=== PATIENT | male | born 1955 | race Caucasian/White ===

== ENCOUNTER 2019-07-16 13:03 | Outpatient (CLI) | payer BC, SELFPAY ==
--- NOTE | ~2019-07-16 | XR_ITS ---
EXAMINATION: XR lumbar spine 2-3V EXAM DATE: 07/16/2019 13:30 INDICATION: Lumbar pain. TECHNIQUE: Frontal and lateral projections of the lumbar spine. There is no prior study for compari son. FINDINGS: There is mild diffuse thoracic disc disease and mild to moderate lower lumbar facet arthrop athy. Vertebral body heights are maintained. There are no acute fractures identified. Sacrum, sacroil iac joints, sacral arcuate lines are intact. There are no bony erosions identified. Paraspinal sof t tissue is unremarkable. IMPRESSION: Mild lumbar disc disease, mild to moderate lower lumbar facet arthropathy. Reviewed, dictated and finalized at location A. IMPRESSION: Mild lumbar disc disease, mild to moderate lower lumbar facet arth ropathy.
--- NOTE | ~2019-07-16 | XR_ITS ---
EXAMINATION: XR thoracic spine 2V EXAM DATE: 07/16/2019 13:30 INDICATION: No known recent injury provided at this time. Pain of the thoracolumbar spine. TECHNIQUE: Frontal and lateral projections of the thoracic spine as well as lateral swimmers projecti on of the upper thoracic spine for interpretation. There is no prior study for comparison. FINDINGS: There is mild mid and lower thoracic disc disease. Probable mild facet arthropathy. There are no bony erosions identified. The vertebral bodies are aligned in the AP dimension. The vertebr al body heights appear maintained. Paraspinal soft tissue is unremarkable. IMPRESSION: Mild thoracic spondylosis. Reviewed, dictated and finalized at location A. IMPRESSION: Mild thoracic spondylosis.
== END 2019-07-16 13:04 | disposition home or self-care (01) ==
DX: M54.6 Pain in thoracic spine (principal); M54.5 Low back pain; M51.86 Other intervertebral disc disorders, lumbar region; M12.88 Other specific arthropathies, not elsewhere classified, other specified site; M47.814 Spondylosis without myelopathy or radiculopathy, thoracic region
CPT/HCPCS: 72070; 72100

== ENCOUNTER 2020-02-04 15:21 | Emergency (ER) | payer BC, SELFPAY ==
[2020-02-04 15:28] VITALS: BP 139/87; PULSE 64; RESP 14; O2SAT 98
--- NOTE | 2020-02-04 15:33 | ED.GENADULT ---
HPI - General Adult General Chief complaint: Ear Stated complaint: fluid in ear Time Seen by Provider: 02/04/20 15:33 Source: patient Mode of arrival: ambulatory Limitations: no limitations History of Present Illness HPI narrative: 64-year-old male patient presents to the [facility] with complaints of feeling like there is fluid in both of the ears. Patient states he does have some decreased hearing noted to the left ear. Patient states he has had the symptoms now for about a week. Patient did call his doctor and was placed on a steroid pack that he continues to take and is about fpc through. Patient states he has been dealing with some chronic congestion for the past couple of years. Patient states he does have a steroid nasal spray that is prescribed to him that he does twice a day 2 squirts in each nostril. Patient denies any fevers, body aches or chills. Related Data Home Medications Medication Instructions Recorded Confirmed carbidopa-levodopa [Sinemet CR] 1 tablet PO BID 02/04/20 02/04/20 lisinopril 10 mg PO DAILY 02/04/20 02/04/20 ropinirole 4 mg PO BID 02/04/20 02/04/20 simvastatin 40 mg PO DAILY 02/04/20 02/04/20 Allergies Allergy/AdvReac Type Severity Reaction Status Date / Time Sulfa (Sulfonamide Allergy Anaphylaxis Verified 02/04/20 15:41 Antibiotics) Review of Systems Review of Systems: Narrative: CONSTITUTIONAL: Denies fever, chills, or sweats. EYES: Denies visual changes, redness, or discharge. ENT: Denies rhinorrhea, congestion, sore throat, positive bilateral otalgia. CARDIOVASCULAR: Denies chest pain, palpitations, or edema. RESPIRATORY: Denies cough or dyspnea. GASTROINTESTINAL: Denies abdominal pain, nausea, vomiting, or diarrhea. GENITOURINARY: Denies dysuria or hematuria. SKIN: Denies rash or itching. MUSCULOSKELETAL: Denies back pain, joint pain, or myalgia. NEUROLOGIC: Denies headache, numbness, or weakness. PSYCHIATRIC: Denies anxiety or depression. [facility] Past Medical History Medical History (Updated 02/04/20 @ 15:56 by LOVE Sauer) Hypercholesterolemia Hypertension Parkinson's disease Comments At the time of my signature I agree with nursing past medical history, surgical, social, and family history. There is no relevant family history pertinent to the presenting complaint. Exam Narrative: Exam Narrative: GENERAL: Well-appearing, well-nourished, and in no acute distress. HEAD: Normocephalic, atraumatic. EYES: PERRLA and EOMI. ENT: Nares clear, no rhinorrhea or epistaxis. Mucous membranes moist. The left TM does have slight erythema noted with a little bit of fluid behind the ear. NECK: Supple. No lymphadenopathy CHEST: Clear to auscultation. No respiratory distress. HEART: Regular rate and rhythm. No murmur heard. Normal peripheral pulses. ABDOMEN: Soft, nontender, nondistended, normal active bowel sounds. EXTREMITIES: Normal range of motion. No edema. SKIN: Warm, dry, no rash. NEURO: No focal deficits. Alert and oriented x3. Course Vital Signs Vital signs: Vital Signs Pulse Rate 64 02/04/20 15:28 Respiratory Rate 14 02/04/20 15:28 Blood Pressure 139/87 02/04/20 15:28 Pulse Oximetry 98 02/04/20 15:28 Pulse Rate 64 02/04/20 15:28 Respiratory Rate 14 02/04/20 15:28 Blood Pressure 139/87 02/04/20 15:28 Pulse Oximetry 98 02/04/20 15:28 Vital signs reviewed. The patient has been informed that they may have pre-hypertension or Hypertension based on a BP reading in the department. I recommend that the patient call the primary care provider listed on their discharge instructions or a physician of their choice this week to arrange follow up for further evaluation of possible pre-hypertension or Hypertension Medical Decision Making Differential Diagnosis Differential Diagnosis: Differential diagnosis: Otitis media, otitis externa, perforated TM, infection of the outer ear, foreign body or cerumen impaction, ruptured TM, acute mastoi
== END 2020-02-04 16:00 | disposition home or self-care (01) ==
PROVIDERS: Emergency Provider Nurse Practitioner Family; PCP Occupational Therapist
DX: H66.92 Otitis media, unspecified, left ear (principal); E78.00 Pure hypercholesterolemia, unspecified; I10 Essential (primary) hypertension; G20 Parkinson's disease
CPT/HCPCS: 99213; G0463

== ENCOUNTER → 2020-02-25 12:42 | Outpatient (CLI) | payer BC, SELFPAY ==
--- NOTE | ~2020-02-25 | CT_ITS ---
EXAMINATION: CT sinus wo con DATE: 02/25/2020 12:59 INDICATION: Sinusitis TECHNIQUE: Computed tomography (CT) of the paranasal sinuses was performed without intravenous contra st. The dose-length product was 290.62 mGy-cm. Iterative reconstruction technique was employed. COMPARISON: None FINDINGS: There is a mucous retention cyst of the left maxillary sinus. No air-fluid levels. No mucop eriosteal reaction. There are surgical changes of the ostiomeatal units. No significant nasal septal deviation. Mastoids are pneumatized. IMPRESSION: 1. 1.2 cm mucous retention cyst left maxillary sinus. Reviewed, dictated and finalized at location B. UNDER
== END ==
DX: J34.89 Other specified disorders of nose and nasal sinuses (principal); J34.1 Cyst and mucocele of nose and nasal sinus
CPT/HCPCS: 70486

== ENCOUNTER 2023-09-09 09:57 | Outpatient (CLI) | payer BC, MEDICARE, SELFPAY ==
--- NOTE | ~2023-09-09 | XR_ITS ---
EXAM: XR shoulder RT min 2V DATE: 09/09/2023 10:35 HISTORY: M75.121 EXTREME PAIN AFTER REACHING 3 DAYS AGO . COMPARISON: 05/22/2023, images only. FINDINGS: Normal mineralization. No fracture or dislocation. No lytic or blastic lesion. Mild AC hieu nt and moderate glenohumeral joint degenerative change. Calcific deposition in the rotator cuff. No e rosion or periosteal change. Soft tissues within normal limits. IMPRESSION: Polyarticular right shoulder osteoarthritis. Rotator cuff calcific tendinitis. Reviewed, dictated and finalized at location K.
== END 2023-09-09 09:58 | disposition home or self-care (01) ==
LOC: ANHIMG 10:15
PROVIDERS: Visit Provider Orthopaedic Surgery
DX: M75.121 Complete rotator cuff tear or rupture of right shoulder, not specified as traumatic (principal); M19.011 Primary osteoarthritis, right shoulder
CPT/HCPCS: 73030

== ENCOUNTER 2023-09-12 14:04 | Outpatient (CLI) | payer BC, MEDICARE, SELFPAY ==
--- NOTE | ~2023-09-12 | CT_ITS ---
EXAMINATION: CT shoulder RT wo con DATE: 09/12/2023 14:22 INDICATION: Right shoulder osteoarthritis. Preop. TECHNIQUE: Computed tomography (CT) of the right shoulder was performed without intravenous contrast. Automated exposure control and iterative reconstruction technique were employed. The dose-length pro duct was 310.73 mGy-cm. COMPARISON: Right shoulder radiograph 09/09/2023 FINDINGS: Bone alignment is normal. No fracture. There is mild osteoarthritis of acromioclavicular sophie int and moderate osteoarthritis of glenohumeral joint. There is narrowing of the subacromial space, c onsistent with rotator cuff tear. There is volume loss and moderate fatty atrophy of the supraspinatu s and infraspinatus muscle bellies. IMPRESSION: 1. Polyarticular osteoarthritis. 2. Chronic right rotator cuff tear. Reviewed, dictated and finalized at location A.
--- NOTE | 2023-09-12 14:27 | ECG_ITS ---
Test Date: 2023-09-12 14:31:42 Measurements Intervals [place] Rate: 63 P: 62 VA: 153 QRS: 49 QRSD: 117 T: 65 QT: 391 QTc: 401 Interpretive Statements SINUS RHYTHM POSSIBLE INFERIOR MYOCARDIAL INFARCTION , PROBABLY OLD [30 ms Q WAVE IN II/aVF] ABNORMAL ECG No previous ECG available for comparison Electronically Signed On 09-12-2023 16:26:57 CDT by Won Hester M.D.
== END 2023-09-12 14:05 | disposition home or self-care (01) ==
LOC: ANHIMG 14:05
PROVIDERS: Visit Provider Orthopaedic Surgery
DX: M75.101 Unspecified rotator cuff tear or rupture of right shoulder, not specified as traumatic (principal); I10 Essential (primary) hypertension; M19.011 Primary osteoarthritis, right shoulder; R94.31 Abnormal electrocardiogram [ECG] [EKG]
CPT/HCPCS: 73200; 93005

== ENCOUNTER 2023-12-04 09:51 | Outpatient (CLI) | payer BC, MEDICARE, SELFPAY ==
[2023-12-04 11:04] LABS: Basophils Percent Auto 0.3 % (0.2-1.2); Eosinophils Absolute Auto 0.2 K/mm3 (0-0.3); Eosinophils Percent Auto 2.7 % (0-4.4); Hematocrit 45.1 % (42.0-52.0); Hemoglobin 14.9 g/dL (14.0-18.0); Immature Granulocyte Absolute 0.03 K/mm3 (0.00-0.031); Immature Granulocyte Percent A 0.4 % (0-0.5); Lymphocytes Absolute Auto 1.82 K/mm3 (0.9-3.2); Lymphocytes Percent Auto 25.7 % (18.3-44.2); Mean Corpuscular Hemoglobin 30.8 pg (26-34); Mean Corpuscular Volume 93.4 fl (80-100); Mean Platelet Volume 9.5 fl (7.4-10.4); Monocytes Absolute Auto 0.6 K/mm3 (0.1-0.6); Monocytes Percent Auto 7.9 % (2.6-8.5); Neutrophils Absolute Auto 4.5 K/mm3 (1.3-6.7); Platelet Count Result 212 k/mm3 (150-375); Red Blood Count 4.83 M/mm3 (4.6-6.20); White Blood Count 7.1 K/mm3 (4.5-10.0)
[2023-12-04 12:21] LABS: MRSA (PCR) NOT DETECTED (NOT DETECTE)
== END 2023-12-04 09:52 | disposition home or self-care (01) ==
PROVIDERS: Visit Provider Orthopaedic Surgery
DX: M75.101 Unspecified rotator cuff tear or rupture of right shoulder, not specified as traumatic (principal); M12.811 Other specific arthropathies, not elsewhere classified, right shoulder
CPT/HCPCS: 36415; 85025; 87641

== ENCOUNTER 2023-12-31 00:52 | Day surgery (SDC) | payer BC, MEDICARE, SELFPAY ==
[2023-12-04 10:07] VITALS: BMI 29.5
--- NOTE | 2023-12-04 10:37 | PC.NURSE ---
Report to the Outpatient Waiting Room, entrance under the green pavilion located off [facility], at time _6 AM on date _12/31/23 . Planned Procedure Time: _7:30 AM .? Time changes happen often and if your time is changed the preop area will call you the afternoon before. - You and your visitor will be asked to self-screen and do not enter if you have any COVID symptoms. Please call surgeon if you need to reschedule. - A mask is optional within the hospital at this time. Patients may have clear liquids (water, carbonated beverages, clear teas, apple juice) until 3 hours prior to surgery( 4:30 AM) with a maximum of 20 ounces. - No food from midnight until time of surgery and no smoking - Infants may have breast milk until 4 hours before surgery, infant formula 6 hours prior to surgery. - Children will be allowed to drink immediately following surgery.? If applicable, please bring a bottle or sippy cup to assist with drinking. Juice, water, soda, and popsicles are readily available.? For infants on formula, please bring formula the day of surgery.? Pacifiers are allowed. Take only the following medications with a SIP of water on the morning of surgery: _CARBIDOPA-LEVODOPA DO NOT STOP ANY OF YOUR OTHER PRESCRIPTION MEDICATIONS PRIOR TO SURGERY EXCEPT THE FOLLOWING Medications to discontinue per physician __NONE Please no make-up, nail japanese, hairspray, perfume, deodorant, or body powder the day of surgery.? No jewelry (including any body piercings) or valuables the day of surgery, leave them at home.? Please take a shower or bath the night before, or the morning of, surgery with an antibacterial soap.? Wear comfortable, loose fitting clothing.? Children are encouraged to wear pajamas. - Jewelry must be removed prior to entering the operating room.? Rings and piercings that are not removed may be cut off. - The hospital will not accept responsibility for valuables.? - Please leave all valuables, including medications, at home the day of surgery. If you are going home after surgery, a licensed national van truck driver must drive you home.? - NO public transportation without another adult if you receive anesthesia. - We recommend that an adult stay with you for 24 hours following discharge. - We also recommend that you do not drive, make important decision, drink alcoholic beverages, or take any drugs that were not prescribed by your health care provider for at least 24 hours after your discharge time. Follow any additional instructions given to you from your surgeon. VERBAL AND WRITTEN instructions given to _PATIENT AND KIM and asked if any additional questions and then verbalized understanding. Patient advised to call surgeon office or pre surgery nurse liaison [phone] if any additional questions.
[2023-12-04 10:50] VITALS: BP 116/81; PULSE 59; RESP 18; TEMP 36.7; O2SAT 97
--- NOTE | 2023-12-30 11:19 | WPDANESEPPF ---
Anes - Initial Pre Proc Eval Procedure: Operation Date: 12/31/23 07:30 Proposed Procedures p Right Reverse Total Shoulder Arthroplasty - Zachariah Hill MD Date/Time: 12/30/23 11:19 Surgeon: Zachariah Hill MD Pre Op Diagnosis: Right Rot Cuff Tear Arthrotomy Patient Data Age: 68 Gender: M Height: 1.73 m Weight: 88.2 kg Last Vital Signs Temp 36.7 C 12/04/23 10:50 Pulse 59 L 12/04/23 10:50 Resp 18 12/04/23 10:50 BP 116/81 12/04/23 10:50 Pulse Ox 97 12/04/23 10:50 O2 Del Method Room Air 12/04/23 10:50 Allergies Allergy/AdvReac Type Severity Reaction Status Date / Time terazosin Allergy Severe Fainting/CHEST Verified 12/31/23 06:46 PAIN,SOB,HYPOTENSION Sulfa (Sulfonamide Allergy Mild Anaphylaxis Verified 12/31/23 06:46 Antibiotics) sulfamethoxazole Allergy Mild Anaphylaxis Verified 12/31/23 06:46 [From Bactrim] trimethoprim [From Bactrim] Allergy Mild Anaphylaxis Verified 12/31/23 06:46 NSAIDS (Non-Steroidal AdvReac Other Verified 12/31/23 06:46 Anti-Inflamma Home Medications Medication Instructions Recorded Confirmed Type tramadol 50 mg tablet 50 mg PO Q6H PRN Pain 03/09/19 12/04/23 History ropinirole 4 mg tablet 4 mg PO BID 02/04/20 12/04/23 History simvastatin 40 mg tablet 40 mg PO DAILY 02/04/20 12/04/23 History carbidopa 25 mg-levodopa 100 mg 2.5 tablet PO TID 12/04/23 12/04/23 History tablet irbesartan 150 mg tablet 75 mg PO DAILY 12/04/23 12/04/23 History silodosin 8 mg capsule 8 mg PO HS 12/04/23 12/04/23 History Patient hx anesthesia problems: none Family hx anesthesia problems: none Results Review: All pre-operative results and documents have been reviewed as part of the pre-operative evaluation. [facility] Past Medical History Medical History Failure of rotator cuff repair History of stress test Hypercholesterolemia Hypertension Parkinson's disease Parkinsons Rotator cuff tear, right chronic massive tear Surgical History Surgical History History of repair of rotator cuff (~04/2010) Family History Family History Mother Hypertension Lung cancer Social History Social History Smoking status: Never smoker Alcohol intake: never Substance use: never Do You Feel Safe in your Home?: Yes Lack of Transportation: No Lack of Food: Never True Current Housing: I Have Housing Concerned About Future Housing: No Difficulty Paying Gas/Electric Bills: No Difficulty Paying for Meds: No Currently Unemployed: No Education: Trade/Vocational Certificate Difficulty w/ Childcare or Family Care: No Living arrangements: with family Spiritual care concerns: No Anes - Eval Final PreProcedure Day of Procedure 12/30/23 11:19 Patient weight: overweight Heart: regular rate and rhythm Lungs: clear to auscultation Airway: Mallampati scale class II Neurological: alert and oriented Last oral intake: >/= 8 hours ASA classification: III Emergent: no Anesthetic plan: proceed Anesthesia type and monitoring: general ETT and standard monitoring Results Review: All pre-operative results and documents have been reviewed as part of the pre-operative evaluation. Informed Consent: The patient's anesthetic plan and its attendant risks and benefits were discussed with the patient/family/POA. Questions were solicited and answers provided to the satisfaction of the patient/family/POA.
[2023-12-31] VITALS (14 sets, daily range): BP systolic 95–131; BP diastolic 59–92; PULSE 60–97; RESP 14–22; TEMP 35.8–36.7; O2SAT 93–98; BMI 29.3
--- NOTE | ~2023-12-31 | XR_ITS ---
EXAMINATION: XR shoulder RT min 2V DATE: 12/31/2023 11:02 INDICATION: Postoperative evaluation TECHNIQUE: 2 views of the right shoulder were performed FINDINGS: There is a right total shoulder arthroplasty in expected position. Subcutaneous gas with s oft tissue swelling are consistent with recent surgery. IMPRESSION: 1. Recent right total shoulder arthroplasty. Reviewed, dictated and finalized at location A.
[2023-12-31] MEDS: ACETAMINOPHEN 500 MG TABLET 1000 MG PO (06:25)
[2023-12-31] MEDS: LACTATED RINGERS 1,000 ML 30 ML IV CONT ×2 (06:30→10:37)
[2023-12-31] MEDS: TRANEXAMIC ACID 1,000MG/ISO100 1,000 MG/100 ML BAG 200 MG IVPB (07:05)
--- NOTE | 2023-12-31 07:20 | W.PM.PROC2 ---
Procedure Note - Detailed Date of Procedure 12/31/23 Pre-op Diagnosis Right shoulder rotator cuff arthropathy. Post-op Diagnosis Same Procedure Performed Reverse total shoulder arthroplasty, right Surgeon Zachariah Hill MD Manager Telemarketing Annabel Coburn PA-C Anesthesia General and Regional (Interscalene block.) Indications Chronic massive cuff tear s/p remote arthroscopic cuff repair. Findings Excellent bone quality. Large deltoid with poorly developed deltopectoral interval. CT 3D planning utilized. No glenoid bone deformity. Description of Procedure The patient was given an interscalene block in the preoperative area. Preoperative antibiotics were given. The patient was transferred to the operating room and a general anesthetic was administered. The beach chair position was used at 45 degrees. All bony prominences were padded. The head was carefully stabilized on the [facility] hot header operator. A sterile prep and drape was performed in the usual manner with ChloraPrep. A longitudinal incision was created at the anterior shoulder just lateral to the deltopectoral interval. Hydrogen peroxide was placed on the incision and then rinsed after one minute. Careful dissection was performed to expose the interval and protect the cephalic vein. The vein was retracted medially. The upper border of the pectoralis was released. Anterior circumflex vessel branches were suture ligated. The biceps was absent. A subscapularis tenotomy was performed. The inferior capsule was released, exposing the humeral head. Osteophytes were removed. Care was taken to stay on bone to protect the axillary nerve. The anatomic head cut was taken with the oscillating saw. The guide pin was placed, central drilling performed, and the broach trial inserted. The neck anteversion and inclination were carefully assessed. The cut protector was placed, and attention was turned to the glenoid. Retractors were placed. Releases were carried out for exposure. The subscapularis was mobilized, the inferior capsule and long head of triceps released, and the superior and middle glenohumeral ligaments released as well. Labral tissue was resected as needed. The sizing template was used to assess the baseplate position low on the glenoid. A guide pin was placed. Minimal reaming was used to accomplish a flat surface without violating the subchondral bone. Version was corrected slightly according to preoperative templating. The boss was drilled, and the real component was impacted into position. Supplemental locking screws were placed centrally, superiorly, and inferiorly. The glenosphere was impacted into the taper. The proximal humerus was reamed for the inset component. The humeral components were trialed. The real humeral stem, tray, and insert were impacted into position. The shoulder was copiously irrigated periodically with pulsatile lavage. The shoulder was reduced and stability confirmed. 1 gram of Vancomycin powder was placed in the joint. The biceps tenodesis was incorporated with the pectoralis tendon repair. The deltopectoral space was reapproximated with number 1 Vicryl. The remaining tissue was closed with 0 Quill and 2-0 Quill running suture and steri-strips. A sterile silver occlusive dressing and shoulder immobilizer were placed. The patient was transferred to the recovery room. Physician recycling assistant, Annabel Coburn PA-C, required for surgery; including patient positioning, draping, tissue retraction, maintaining instrument position, wound closure, and dressing placement. Implants Shoulder Innovations reverse TSA size 1 stem. +0 polyethylene insert. Standard baseplate. 36 +6 mm glenosphere. Estimated Blood Loss 350 Drains No Pathology None sent Complications No immediate complications Condition Stable Disposition PACU [facility] Billing Surgery - Charge Forward: Surgery Billing
--- NOTE | 2023-12-31 07:21 | WPDHPUPDATE1 ---
History and Physical Update Update Date/Time: 12/31/23 07:21 History and Physical has been reviewed, including an updated exam of the patient. There are NO changes in the patient's condition. Risks, benefits, and alternatives have been discussed and questions answered. Patient agrees to proceed with procedure.
--- NOTE | 2023-12-31 07:32 | WPDANESPNB ---
Anes - Peripheral Nerve Block Date/Time: 12/31/23 07:32 I have discussed with the patient/family/POA the placement of a peripheral nerve block for post-operative pain management, including associated risks, benefits, complications, and side effects. Alternative methods of post-operative analgesia were detailed. Questions were solicited and answers provided to the satisfaction of the patient/family/POA. Time-Out: A pre-procedural Time-Out was completed immediately before starting the procedure and confirmed: Patient Identification, Site, Procedure, Patient Position and the Availability of Requisite Equipment. Clinical Indications: Acute post-operative pain management requested by the operative surgeon. Nerve Block Insertion Note Anes-nerve block: interscalene right Patient position: supine Skin prep: chlorhexidine Needle: 22 gauge, stimulating, insulated echogenic needle. Needle length: 50 mm Technique: ultrasound Injectate: bupivacaine 0.5% with epi 5 mcg/ml (20cc- no epi) Observations: tolerated well Complications: none Procedure start time:: 723 Procedure end time:: 727
[2023-12-31] MEDS: ceFAZolin 2 GM/D5W 50 ML 2 GM/50 ML BAG IVPB ×3 (07:33→22:00)
[2023-12-31] MEDS: SODIUM CHLORIDE 0.9% IV 38.7 ML, MORPHINE SULFATE INJ (*CRX) 2 MG, ROPivacaine HCL 1% 2... INFILTRATE (08:30)
[2023-12-31] MEDS: VANCOMYCIN HCL 1,000 MG VIAL 1000 MG TOPICAL (09:33)
[2023-12-31] MEDS: ACETAMINOPHEN 325 MG TABLET 650 MG PO ×3 (13:53→23:00)
[2023-12-31] MEDS: CARBIDOPA/LEVODOPA 25/100 MG TABLET 2 TABLET PO ×2 (13:53→17:53)
[2023-12-31] MEDS: CARBIDOPA/LEVODOPA 12.5/50 MG TABLET 1 TABLET PO ×2 (13:54→17:54)
[2023-12-31] MEDS: SENNA/DOCUSATE SODIUM TABLET 2 TAB PO (17:54)
--- NOTE | 2023-12-31 18:23 | PC.NURSE ---
Addendum entered by Farheen Potts RN 12/31/23 18:27: *Patient takes the ropinirole twice a day in the evening at 4pm and 10pm. Original Note: Patient inquired about ropinirole dose this evening, reviewing MAR with the patient, he stated he takes ropinirole twice a day in the evening at 4pm and 7pm. Upon further clarification the patient also stated he only needs 1mg, not the 4mg dose that was on the home med list. RN spoke with charge nurse to verify and changed the evening dose from 4mg to 1mg per patient request.
[2023-12-31] MEDS: ASPIRIN 81 MG ENTERIC TABLET PO (20:49)
[2023-12-31] MEDS: FAMOTIDINE 20 MG TABLET PO (20:49)
[2023-12-31] MEDS: rOPINIRole HCL 1 MG TABLET PO (20:50)
[2024-01-01] MEDS: oxyCODONE/ACETAMINOPHEN (*CRX) 10-325 MG TABLET 1 TAB PO ×2 (03:15→09:51)
[2024-01-01 03:35] VITALS: BP 113/70; PULSE 64; RESP 16; TEMP 36.6; O2SAT 93
[2024-01-01] MEDS: ACETAMINOPHEN 325 MG TABLET 650 MG PO (06:14)
[2024-01-01] MEDS: ceFAZolin 2 GM/D5W 50 ML 2 GM/50 ML BAG IVPB (06:14)
[2024-01-01 07:05] LABS: Basophils Percent Auto 0.2 % (0.2-1.2); Eosinophils Absolute Auto 0.1 K/mm3 (0-0.3); Eosinophils Percent Auto 0.6 % (0-4.4); Hematocrit 40.7 % (42.0-52.0); Hemoglobin 13.2 g/dL (14.0-18.0); Immature Granulocyte Absolute 0.07 K/mm3 (0.00-0.031); Immature Granulocyte Percent A 0.8 % (0-0.5); Lymphocytes Absolute Auto 1.76 K/mm3 (0.9-3.2); Lymphocytes Percent Auto 18.9 % (18.3-44.2); Mean Corpuscular HGB Conc 32.4 g/dl (32-36); Mean Corpuscular Hemoglobin 30.2 pg (26-34); Mean Corpuscular Volume 93.1 fl (80-100); Mean Platelet Volume 10.3 fl (7.4-10.4); Monocytes Absolute Auto 0.9 K/mm3 (0.1-0.6); Monocytes Percent Auto 9.1 % (2.6-8.5); Neutrophils Absolute Auto 6.6 K/mm3 (1.3-6.7); Neutrophils Percent Auto 70.4 % (45.5-73.1); Platelet Count Result 176 k/mm3 (150-375); Red Blood Count 4.37 M/mm3 (4.6-6.20); Red Cell Distribution Width 12.1 % (11.5-14.5); White Blood Count 9.3 K/mm3 (4.5-10.0)
[2024-01-01 07:35] LABS: Anion Gap 7 mmol/L (4-12); Blood Urea Nitrogen 22 mg/dL (9-20); Calcium 8.7 mg/dL (8.4-10.2); Carbon Dioxide 25 mmol/L (22-30); Chloride 104 mmol/L (98-107); Estimated CRCL calculation 52 ml/min; Estimated Glomerular Filt Rate > 60; Glucose 125 mg/dL (65-110); Potassium 3.7 mmol/L (3.4-5.0); Sodium 136 mmol/L (137-145)
--- NOTE | 2024-01-01 08:06 | PM.DS ---
DS: Admitting Diagnosis Discharge Date 01/01/24 Admitting Diagnosis Rotator cuff arthropathy. DS: Discharge Diagnosis Discharge Diagnosis (1) Status post reverse total arthroplasty of right shoulder: Code(s): Z96.611 - Presence of right artificial shoulder joint Status: Acute (2) Orthopedic aftercare for joint replacement: Code(s): Z47.1 - Aftercare following joint replacement surgery Status: Acute Plan Postop day 1: Right reverse total shoulder arthroplasty. Patient tolerated procedure well. No complications. Pain manageable with pain medication. No numbness or tingling. We had a lengthy discussion regarding postoperative wound care, limitations, expectations, and exercises. Patient shows good understanding. He has had initial physical therapy and is tolerating it well. DVT prophylaxis: 81 mg baby aspirin b.i.d. for 14 days. Pain medication: Percocet. Patient has followup appointment with Dr. Hill in 3 weeks. DS: Summary Hospital Course Hospital Course: Tolerated procedure well. Has had initial PT/OT and is tolerating it well. Status at Discharge Functional status at discharge: independent ambulation Overall status at discharge: patient is progressing back to baseline Time Spent with Patient Time attestation: Total time spent providing and/or coordinating discharge services: Exam Narrative: Overweight 68 y/o male. Resting comfortably in bed. Wearing sling. Dressing dry and intact with no drainage. Moderate swelling. Moderate ecchymosis. No erythema. No hematoma. Range of motion limited due to pain. Calf nontender. Neurologic status intact. No varicosities. Distal pulses palpable. DS: Data Data Completed and Pending Labs on day of discharge: Labs from last 24 hours 01/01/24 06:30 WBC 9.3 RBC 4.37 L Hgb 13.2 L Hct 40.7 L MCV 93.1 MCH 30.2 MCHC 32.4 RDW 12.1 Plt Count 176 MPV 10.3 Immature Gran % (Auto) 0.8 H Neut % (Auto) 70.4 Lymph % (Auto) 18.9 [place] % (Auto) 9.1 H Eos % (Auto) 0.6 Baso % (Auto) 0.2 Lymph # (Auto) 1.76 [place] # (Auto) 0.9 H Eos # (Auto) 0.1 Baso # (Auto) 0.0 Abs Immat Gran (auto) 0.07 H Absolute Neuts (auto) 6.6 Absolute Nucleated RBC 0.000 Nucleated RBC % 0.0 Sodium 136 L Potassium 3.7 Chloride 104 Carbon Dioxide 25 Anion Gap 7 BUN 22 H Creatinine 1.20 Estim Creat Clear Calc 52 Estimated GFR > 60 Glucose 125 H Calcium 8.7 Discharge Plan Discharge Patient Disposition: Home, Self-Care Discharge Instructions: See green instruction sheets Stand Alone Forms: General Discharge Instructions Follow-up/Referrals: Annabel Coburn PA [Physician Bench Worker Apprentice] - Discharge Medications: New aspirin 81 mg tablet,delayed release (DR/EC) 81 mg PO BID 14 Days Qty: 28 0RF oxycodone-acetaminophen 5-325 mg tablet 1 - 2 tablet PO Q4-6H PRN (Reason: pain) 7 Days Qty: 30 0RF Continued simvastatin 40 mg Tablet 40 mg PO DAILY ropinirole 4 mg Tablet 4 mg PO BID carbidopa-levodopa 25-100 mg tablet 2.5 tablet PO TID irbesartan 150 mg tablet 75 mg PO DAILY silodosin 8 mg capsule 8 mg PO HS Held tramadol 50 mg tablet 50 mg PO Q6H PRN (Reason: Pain)
[2024-01-01] MEDS: traMADol HCL (*CRX) 50 MG TABLET PO (08:08)
[2024-01-01] MEDS: SENNA/DOCUSATE SODIUM TABLET 2 TAB PO (08:09)
[2024-01-01] MEDS: FAMOTIDINE 20 MG TABLET PO (08:09)
[2024-01-01] MEDS: ASPIRIN 81 MG ENTERIC TABLET PO (08:09)
[2024-01-01] MEDS: polyethylene glycoL 3350 17 GM POWD.PACK PO (08:09)
[2024-01-01] MEDS: IRBESARTAN 75 MG TABLET PO (08:09)
[2024-01-01] MEDS: CARBIDOPA/LEVODOPA 25/100 MG TABLET 2 TABLET PO (08:09)
[2024-01-01] MEDS: SIMVASTATIN 20 MG TABLET 40 MG PO (08:09)
[2024-01-01] MEDS: CARBIDOPA/LEVODOPA 12.5/50 MG TABLET 1 TABLET PO (08:09)
== END 2024-01-01 10:02 | disposition home or self-care (01) ==
LOC: ANHSURGERY 10:38 → ANH3MEDSUR 12:21
PROVIDERS: Physician Assistant Surgical; Visit Provider Orthopaedic Surgery
PROC: (CPT 23472; principal; 2023-12-31 07:30)
DX: M75.101 Unspecified rotator cuff tear or rupture of right shoulder, not specified as traumatic (principal); M12.811 Other specific arthropathies, not elsewhere classified, right shoulder; G89.18 Other acute postprocedural pain; I10 Essential (primary) hypertension; E78.00 Pure hypercholesterolemia, unspecified; G20.A1 Parkinson's disease without dyskinesia, without mention of fluctuations
CPT/HCPCS: 23472; 64415; 36415; 73030; 80048; 85025; 86850; 86900; 86901; 97110; 97161; 97165; 97530; 97535; A4565; A9270; C1776; J0171; J0330; J0690; J1100; J1171; J1596; J2003; J2250; J2270; J2371; J2405; J2704; J2795; J3010; J3370; J7120

== ENCOUNTER 2024-02-19 09:55 | Outpatient (CLI) | payer BC, MEDICARE, SELFPAY ==
--- NOTE | ~2024-02-19 | XR_ITS ---
XR shoulder RT min 2V Ordering provider: Zachariah Hill MD History: . Z96.611 - Presence of right artificial shoulder joint OCT 1 . Comparison: None. FINDINGS: BONES: No acute fracture or dislocation. JOINT SPACES: The acromioclavicular joint is normal. Right shoulder arthroplasty. SOFT TISSUES: Normal. IMPRESSION: No acute osseous abnormality right shoulder. Right shoulder arthroplasty. Reviewed, dictated and finalized at location A. [facility]
== END 2024-02-19 09:56 | disposition home or self-care (01) ==
PROVIDERS: Visit Provider Orthopaedic Surgery
DX: Z96.611 Presence of right artificial shoulder joint (principal)
CPT/HCPCS: 73030

== ENCOUNTER 2024-12-14 13:37 | Outpatient (CLI) | payer BC, MEDICARE, SELFPAY ==
--- NOTE | ~2024-12-14 | XR_ITS ---
EXAMINATION: XR shoulder RT min 2V, 12/14/2024 14:05 CDT HISTORY: SHOULDER REPLACEMENT x1 YEAR AGO; RT SHOULDER PAIN x3 MONTHS COMPARISON: No comparisons available. Findings: No acute fracture or malalignment. Arthroplasty intact Soft tissues unremarkable. Impression: No acute fracture or malalignment. Reviewed, dictated and finalized at location A. Impression: No acute fracture or malalignment.
--- OUTSIDE RECORDS SUMMARY | 2024-12-14 14:00 | XMS_ITS | Clinical Summary ---
Author Organization [facility] [address] Address [address] [place] [address] Care Team Providers Care Semiconductor Engineer Name Role Phone Lexy Taylor MD Primary Care Provider Allergies Active Allergy Reactions Criticality Noted Date Comments Mold Rash Medium 12/07/2019 Sulfadiazine Anaphylaxis High 02/09/2019 Near experience Near experience Near experience Sulfamethoxazole-Trimethop rim Rash Medium 12/07/2019 Terazosin Syncope High 02/17/2024 Medications simvastatin (ZOCOR) 20 mg tablet Take 1 tablet (20 mg total) by mouth daily 3 7 Active traMADol (ULTRAM) 50 mg tablet Take 1 tablet (50 mg total) by mouth as needed for pain or other (RLS) 1 tab at 7 pm and 10 pm 0 8 Active irbesartan (AVAPRO) 150 mg tablet Take 0.5 tablets (75 mg total) by mouth daily 0 Active silodosin (RAPAFLO) 8 mg capsule 3 Active rOPINIRole (REQUIP) 1 mg tablet Take 1 tablet (1 mg total) by mouth 2 (two) times a day 180 tablet 3 5 04/08/19 26 Active ketoconazole (NIZORAL) 2 % shampoo APPLY FIVE-MINUTE CONTACT WASH TO SCALP 2-3 TIMES PER WEEK. 4 Active carbidopa-levodo pa (SINEMET) 25-100 mg per tablet Take 2.5 tabs three times a day and up to 1 tablet twice a day as needed. 855 tablet 3 5 Active amantadine (SYMMETREL) 100 mg capsule 1 cap every day x1wk, then 1 cap BID 60 capsule 11 5 Active selegiline (ELDEPRYL) 5 mg capsuleIndicatio ns:Idiopathic Parkinsonism Take 1 capsule (5 mg total) by mouth 2 (two) times a day before breakfast and lunch 60 capsule 11 5 12/03/19 26 Active rOPINIRole (REQUIP) 0.25 mg tablet Take 3 tablets (0.75 mg total) by mouth 2 (two) times a day 540 tablet 3 5 12/03/19 25 Discontin ued(Thera py completed ) carbidopa-levodo pa CR (SINEMET CR) 50-200 mg per CR tablet Take 1 tablet by mouth nightly Take 1 tablet at 9:30/10 pm (bedtime) 30 tablet 11 5 12/03/19 25 Discontin ued(Thera py completed ) Active Problems Problem Noted Date Diagnosed Date Encounter for screening colonoscopy 04/07/2024 History of colonic polyps 04/07/2024 Shoulder pain 04/20/2020 Overview (04/20/2020): Overview: Bilateral Atypical chest pain 04/20/2020 Overview (04/20/2020): Added automatically from request for surgery [id number] Assessment & Plan (04/28/2020 4:25 PM CELL LINER): Patient indicate he has the normal cardiac workup. With that in mind will schedule upper endoscopy for further evaluation. Continue Protonix daily and the Maalox as needed at this time. Follow-up after the EGD. RLS (restless legs syndrome) 02/08/2020 Other constipation 02/08/2020 Overactive bladder 02/08/2020 Headache disorder 12/14/2019 Bradycardia 09/28/2019 Post-nasal drip 09/11/2019 Sinusitis 09/11/2019 Facial pressure 09/11/2019 Screen for colon cancer 04/16/2019 Overview (04/16/2019): Added automatically from request for surgery [id number] Parkinson disease 02/10/2019 Assessment & Plan (12/02/2024 9:47 AM CDT): Mr. Fe Finley is a 69 y.o. male, who presents for follow-up for Parkinson's disease (PD), complicated by RLS. He is doing well. He has some downtime in the afternoon, feeling more tired and has a bit more dyskinesias. Levodopa continues to help with the mobility. RLS is well controlled with ropinirole. His MDS-UPDRS is stable. He is doing well, but needs some adjustments in his medication. We will start selegiline to help with tiredness in the evening and ease the fluctuations, followed by amantadine for dyskinesias. Plan: We will start selegiline and amantadine. Schedule was given. Continue carbidopa-levodopa at the same dose. Continue ropinirole at the same dose. You can finish you supply of 0.25 mg and contact the clinic prior to running out so that we can send you a new prescription of 1 mg. Potential medication side effects were discussed during the encounter. Assessment & Plan (10/04/2024 5:07 PM CDT): Mr. Fe Finley is a 69 y.o. male, who presents for follow-up for Parkinson's disease (PD), complicated by RLS. Overall he has good levodopa benefit though now with some early wearing OFF that occurs around 4-5 hours post-dose, though today he reports this is more pronounced in the context of increased activity/intensity activities. In the past doses of 3 tabs may have resulted in worse dyskinesias and now more recently taking doses QID resulted in later afternoon/evening dyskinesias that were more bothersome and some brain fog. At current dosing of 2.5 tabs TID, he has some peak-dose dyskinesias (right hand and foot) that are manageable now though if these worsen we could trial amantadine while monitoring for interval worsening of cognition or psychosis. As overall he is fairly satisfied with his current regimen and MDS-UPDRS is stable, we agreed he can trial taking 1/2 tab to 1 full tab extra prn for higher intensity activities or early wearing off and see how this is tolerated (doses up to BID prn). He does take ropinirole in the afternoon and evening hours so if there is a trend of evening dyskinesias we may re-evaluate those levodopa doses more closely for dose reduction in those specific timeframes. He should re-trial bedtime carbidopa-levodopa CR for overnight gait impairment and rigidity and if no SE then titrate as needed/tolerated. RLS is well controlled currently with 1 mg BID of ropinirole though should he experience exacerbation in the future, I'd preferentially add gabapentin rather than increase the dopamine agonist due to the risk of augmentation. He is non-compliant with CPAP for JAY, can consider [facility] Sleep Medicine in the future. Should he develop complaint of brain fog again with higher dose of levodopa or any more frequent complaints of LH, then should check orthostatic blood pressures to rule out symptomatic OH driving these symptoms. SBP today in clinic 108 mmHg but not reporting LH. Of note, he is on irbesartan 150 mg daily so would need to work with prescriber to reduce this as needed. Recommendations: Continue carbidopa-levodopa 25/100 mg IR 2.5 tabs TID May use extra 0.5 to 1 full tab twice a day as needed for break-through symptoms of stiffness, slowness, walking difficulty or ahead of higher intensity activities Can crush this extra C/L IR dose and take it with carbonated beverage or orange juice for faster absorption Restart carbidopa-levodopa 50/200 mg CR as 1 tab at bedtime (9:30/10 PM) Same ropinirole for now 1 mg at 4 pm and 1 mg at 7 pm Consider [facility] Sleep Medicine referral in future Follow-up as scheduled with Dr. Gao as scheduled 02/15/25 along with NPT Advised to pay attention to levodopa latency, duration, and side effects ahead of next visit Potential medication side effects were discussed during the encounter. Assessment & Plan (08/27/2024 10:58 AM CDT): Mr. Fe Finley is a 69 y.o. male, who presents for follow-up for Parkinson's disease (PD), complicated by RLS. Overall he has good levodopa benefit though now with some early wearing OFF that occurs around 4-5 hours post-dose. It seems that higher levodopa of 3 tabs may have resulted in worse dyskinesias, though this trial was brief and unclear. He has some peak-dose dyskinesias (right hand and foot) that are manageable now though if these worsen we could trial amantadine while monitoring for interval worsening of cognition or psychosis. We discussed compression his levodopa dosing schedule to consistently every 4 hours to see if this is helpful for the wearing OFF without worsening dyskinesias. He does take ropinirole in the afternoon and evening hours so if there is a trend of evening dyskinesias we may re- evaluate those levodopa doses more closely for dose reduction. He will also trial bedtime carbidopa-levodopa CR for overnight gait impairment and rigidity. RLS is well controlled currently with 1 mg BID of ropinirole though should he experience exacerbation in the future, I'd preferentially add gabapentin rather than increase the dopamine agonist due to the risk of augmentation. He is non-compliant with CPAP for JAY, can consider [facility] Sleep Medicine in the future. Recommendations: Continue carbidopa-levodopa 25/100 mg IR 2.5 tabs but as QID instead of TID (every 4 hours during the daytime around 6 AM - 10 AM - 2 PM - 6 PM) Start carbidopa-levodopa 50/200 mg CR as 1 tab at bedtime (9:30/10 PM) Same ropinirole for now 1 mg at 4 pm and 1 mg at 7 pm Consider [facility] Sleep Medicine referral in future Telemedicine follow-up in 4-6 weeks with me, then Dr. Gao as scheduled 02/15/25 Potential medication side effects were discussed during the encounter. Assessment & Plan (05/01/2024 12:07 PM CELL LINER): Mr. Fe Finley is a 68 y.o. male, who presents for follow-up for Parkinson's disease (PD), complicated by RLS. He is overall doing well and continues to have benefit from levodopa with non-bothersome dyskinesias currently isolated to right hand. He had colonoscopy 3 weeks ago and since then he has not been able to sleep. He has history of 2 other times this has occurred after a procedure/ surgery. He has been trying everything to sleep. He is now trying to sleep on the floor which he finds most comfortable but he continued to struggle to sleep. He has history of sleep apnea and his pmd is considering referral to sleep study. He was trialed 50 mg of Trazadone but he felt it was too much and he stopped taking it since it got him very drowsy and lethargic but he could not sleep. We discussing he can try 1/2 a tab instead of the whole tab. He was also having wearing off from C/L in the middle of the night impacting his balance. We discussed taking C/L IR 2.5 tabs qid instead of tid. He was doing otherwise well. He will be following up with his primary for the sleep issues. He continues to be also on Ropinirole for RLS and also took Tramadol as needed. Recommendations: carbidopa-levodopa 2.5 tabs qid Trazadone 25 mg at bedtime Same ropinirole for now 1 mg at 4 pm and 1 mg at 7 pm Follow up with pmd and consider sleep study as recommended Follow-up as scheduled in August or sooner if needed Potential medication side effects were discussed during the encounter. Assessment & Plan (02/21/2024 3:44 PM CELL LINER): Mr. Fe Finley is a 68 y.o. male, who presents for follow-up for Parkinson's disease (PD), complicated by RLS. He is overall doing well and continues to have benefit from levodopa with non-bothersome dyskinesias currently isolated to right hand. I suggested compressing his levodopa schedule to his more active hours of the day to see if this provides benefit. If needed he could add a fourth dose into the evening but he is currently taking ropinirole for his RLS at 1600/1900. He continues to tolerate ropinirole for RLS well without side effects and uses tramadol prn. Recommendations: Continue carbidopa-levodopa 2.5 tabs TID but trial changing carbidopa-levodopa timing to 5 AM - 10 AM - 3 PM and update us in 2 weeks Trial melatonin 3-5 mg nightly 1 hour before bedtime for sleep. Sleep hygiene instructions provided. Same ropinirole for now 1 mg at 4 pm and 1 mg at 7 pm NPT today Follow-up with me in 6 months, Dr. Gao as scheduled 02/15/25 Potential medication side effects were discussed during the encounter. Assessment & Plan (08/15/2023 10:49 AM CDT): Mr. Fe Finley is a 67 y.o. male, who presents for follow-up for Parkinson's disease (PD), complicated by RLS. He is overall doing well and continues to have benefit from levodopa with non-bothersome dyskinesias currently isolated to right hand. As he only notices wearing OFF between his morning and noon dose, I suggested compression his dosing schedule from [id number] to [phone] during the peak of his working day to see if this provides benefit. If needed he could add a fourth dose into the evening but he is currently taking ropinirole for his RLS at 1600/1900. His RLS recently became more active this spring and he has since increased his regimen to ropinirole 0.75 mg at PM and 1 mg at 7 PM with benefit (from 0.5 mg/0.5 mg then 0.75/0.75 mg). Fasting iron and ferritin recently checked and wnl. With the ropinirole increase he has had improved RLS with less frequent exacerbations. He continues to tolerate ropinirole well without side effects. We discussed that he should increase his water intake to a minimum of 64 ounces for multiple reasons including orthostasis, constipation, and leg cramping. Regarding his orthostasis, he reports this is uncommon however his BP in clinic today is 99/63 and he remains on irbesartan and terazosin, both of which (in addition to levodopa) can lower blood pressure. I have encouraged him to check orthostatic BP and also to notify his PCP of his lower blood pressure because reportedly this is not the first time he's been told it is low. Recommendations: Continue carbidopa-levodopa at the same dose 2 tabs TID but change dosing schedule to [id number] (from [id number]) Continue ropinirole at the same dose 0.75 mg at 4 PM and 1 mg at 7 PM. If needed can increase to 1 mg/1 mg and then further to 1 mg TID (with 1st dose 1 hour prior to symptom onset, then 1 mg at 4 PM, 1 mg at 7 PM) as previously recommended given that RLS was reportedly happening earlier in the day than previously Increase hydration, continue leg stretches to minimize cramping Check orthostatic BP and update our office in 2 weeks, patient to notify PCP of low BP in office Has not had NPT since 2019, scheduled today but cannot wait so will plan for this at next visit Follow-up with me in 6 months, Dr. Gao as scheduled 02/15/25 Potential medication side effects were discussed during the encounter. Assessment & Plan (02/04/2023 9:49 AM CELL LINER): Mr. Fe Finley is a 67 y.o. male, who presents for follow-up for Parkinson's disease (PD), complicated by RLS. He is doing really well. Levodopa continues to help. He has some non-bothersome dyskinesias. He has some intermittent cramps in the right leg. He has some nights with RLS being more active, but they are uncommon. He tolerates ropinirole well without side effects. His UPDRS is stable. He is doing well and does not need medication and does not need medication adjustments except for a change in the dose of ropinirole as needed. We also talked about incorporating stretching in his daily tasks to help with the cramps. I answered multiple questions about disease progression and healthy aging. Plan: Continue carbidopa-levodopa at the same dose. Can do stretches in the legs to minimize cramping. Continue ropinirole at the same dose. In the night RLS symptoms are more active, can consider taking an extra tablet of ropinirole at 7 pm and/or 10 pm as needed. Potential medication side effects were discussed during the encounter. Assessment & Plan (04/06/2022 1:56 PM CELL LINER): Mr. Finley presented for a follow up. He had more movement in his right leg since his last visit, but otherwise he was doing well with his PD. He stayed busy, but did not have routine exercise regimen. Today, he had pretty good dexterity, he had rigidity in his neck and bradykinesia. He will try to increase the levodopa and PT first. If no improvement, we discussed potential BTX injections. Recommendations: 1. Increase the levodopa to 2.5 tabs each dose. Journal response 2. Update us in 2 weeks 3. Continue the same ropinirole 4. Follow up in 6 months with me or Dr. Faust 5. Start PT- order provided today 6. Increase water intake to 64 oz Assessment & Plan (04/25/2021 12:53 PM CELL LINER): Mr. Fe Finley is a 65 y.o. male, who presents for follow-up for Parkinson's disease (PD), complicated by RLS. 1. PD. He is stable since the last visit. He is doing well. His gait is fine and at times it is limited due to his chronic back pain. He tolerates levodopa well without side effects, motor fluctuations or dyskinesias. We discussed continuing his current regimen for PD. - Continue carbidopa/levodopa IR at the current dose. - Establish a regular exercise program. 2. RLS in the setting of PD. He is stable since the last visit. He is doing really well with the combination of ropinirole, tramadol and carbidopa-levodopa. He tried Lyrica, but it caused blurred vision. He does not have any signs of augmentation. He does not have side effects from the medication. - Continue ropinirole, tramadol and carbidopa-levodopa at the current dose. Potential medication side effects were discussed during the encounter. Assessment & Plan (09/24/2020 1:01 PM CDT): Mr. Fe Finley is a 65 y.o. male, who presents for follow-up for Parkinson's disease (PD), complicated by RLS. 1. PD. He is about the same since the last visit. Gait and tremor are well controlled. He does not have side effects or dyskinesias. - Continue carbidopa/levodopa IR at the current dose. - Establish a regular exercise program. 2. RLS in the setting of PD. He is better since the last visit. He was overall well controlled until three days ago. He does not have side effects from ropinirole or tramadol. We had a long discussion about his current treatment regimen. We should try to transition him out of tramadol use. In addition to risk of tolerance, it complicates the treatment of chronic headaches. We will increase ropinirole and he should try to discontinue tramadol at bedtime. He should also discuss with his other providers a better management of his back pain. - Increase ropinirole 0.25 mg to 2 tablets in the evening and 3 tablets at bedtime. Potential medication side effects were discussed during the encounter. Assessment & Plan (02/08/2020 12:21 PM CELL LINER): Mr. Luca Finley is a 64 y.o. male, who presents for follow-up for Parkinson's disease (PD), complicated by RLS and dysautonomia. 1. PD. He is overall stable since the last visit. He has some intermittent dragging of the right leg that does not happen very day or in a consistent schedule. Otherwise, he is pleased with his symptom management. - Continue carbidopa/levodopa IR at the current dose. --- Can take 0.5 tablet as needed for leg dragging. - Establish a regular exercise program. 2. Dysautonomia in the setting of PD. --- Constipation. It is worse since the last visit. Start Miralax 1 packet a day. --- Overactive bladder. It is better since the last visit. Continue Ditropan at the current dose. 3. RLS in the setting of PD. He is better since the last visit. We talked about potentially trying to come off tramadol in the next visit. He has an upcoming visit with a surgeon to assess his back pain and may be able to be without tramadol for it. We may increase the dose of ropinirole to compensate for taking less tramadol in the next visit. - Continue ropinirole and tramadol at the current dose. Potential medication side effects were discussed during the encounter. Assessment & Plan (09/28/2019 1:45 PM CDT): Mr. Luca Finley is a 64 y.o. male, who presents for follow-up for PD. He did not have much benefit of addition of ropinirole, but had improvement after carbidopa- levodopa was added. He remains with with dexterity problems in the right hand and tremor, and episodes of back pain. He did not have any side effects from the medication. He also reports pressure behind the eyes, which he has had for around two years. The pain is almost all the time and it is associated with drainage. He does not have aura, nausea or vomiting. He takes tramadol three times a day for the pain. On examination, he was bradycardic but asymptomatic (42 bpm upon manual check), he did not have pain on palpation of sinuses, and there was mild parkinsonism, more evident in the right side. As far as the PD symptoms, he would benefit first of adjusting the timing of the medication to 7 am, 12 pm and 6 pm. If no improvemenet of the dexterity, he should increase the dose to 2 tablet three times a day. The headache still sound like sinus-related. However, it has some features of tension-type headache and given the lack of benefit despite surgical procedure in the sinus, he should benefit of treating it as such. Additionally, we discussed about the frequent use of tramadol as a generator of chronic headache, as a medication overuse headache, which probably complicates the picture. We talked about him restricting the use of tramadol to twice a week. He would benefit on restarting the nortriptyline at bedtime. However, he had asymptomatic bradycardia and should get checked first with his PCP before starting any new medication. Of note, I reviewed all potential symptoms related to low heart rate and he did not have any of those. Topiramate can also be an option. He has an appointment with his PCP tomorrow and he should discuss the bradycardia noted today in the clinic. Plan: - Adjust the dose of carbidopa-levodopa 25-100 mg to 1.5 tablet 7 am, 12 pm and 6 pm. If no improvement of his symptoms, can increase to 2 tablets three times a day. - Stretching exercises may help the back pain. - Discuss with PCP tomorrow about bradycardia. He should have it addressed prior to the use of any medication for the treatment of headaches. --- If cleared by PCP, would try nortriptyline first and next option would be topiramate. - Restrict the use of tramadol to twice a week. Assessment & Plan (02/10/2019 3:47 PM CELL LINER): Mr. Luca Finley is a 63 y.o. male, who presents for evaluation of PD. His symptoms started in 2018, with changes in gait, dexterity and handwriting. He had an intitial work up for multiple sclerosis, which was negative, and a second neurologist diagnosed him with PD. He was started on low dose of carbidopa-levodopa (300 mg a day) without significant improvement and possible mental slowing. He contacted the [facility], who referred him to our center. He is off any medications. He is able to work and perform his ADLs and his most problematic symptom is a discomfort in the right arm and leg that improved with tramadol. On examination, he has mild to moderate parkinsonism. History and examination are compatible with PD. His lack of response to levodopa was likely related to low dose. He would like the discomfort in the right side to be addressed and is hesitant about trying levodopa again. We discussed that levodopa is likely a medication that will be used in the future, but we can try an alternative drug, ropinirole. We talked about dopamine agonists, potential benefits and side effects, including drowsiness and ICD. Once he is on a optimal dose of ropinirole, we may be able to taper him off tramadol. Discussed the risks of tolerance with tramadol and that it is not an optimal drug for snf use. Finally, we talked about the importance of exercise and how he should establish a schedule for a regular exercise routine. Plan: - Start ropinirole 0.25 mg with titration to 2 tablets three times a day. Additional titration may be needed. May change to extended-release formulation once optimal dose is achieved. - Establish exercise routine. Right hand weakness 04/18/2017 Right foot drop 04/02/2017 Blurry vision 07/19/2015 Essential hypertension 05/05/2008 Overview (04/20/2020): Overview: Hay fever 05/05/2008 Encounters Date Type Department Care Team Description 12/02/2024 9:00 AM CDT Office Visit [facility] Disorders [address] [place] [address] Advanced Medicine [address] [place] [id number] Lizzy Peña am, MD Parkinson's disease with dyskinesia and fluctuating manifestations (HCC) (Primary Dx); RLS (restless legs syndrome) 10/02/2024 11:30 AM CDT Office Visit [facility] [address] [place] [phone] Jennie Diaz NP RLS (restless legs syndrome) (Primary Dx); Parkinson's disease with dyskinesia, unspecified whether manifestations fluctuate (HCC) 09/14/2024 Telephone [facility] Medicine Scheduling [facility] [place] [address] Jennie Diaz NP Scheduling Appointments from Last 3 Months Surgical History Surgery Date Site/Laterality Comments ROTATOR CUFF REPAIR HERNIA REPAIR FL FLUORO GUIDED LUMBAR PUNCTURE 05/10/2017 Right FL FLUORO GUIDED LUMBAR PUNCTURE 05/15/2017 Right SHOULDER SURGERY POLYPECTOMY COLONOSCOPY 02/09/2014 SINUS SURGERY 02/22/2019 - 03/24/2019 CATARACT EXTRACTION COLONOSCOPY 06/03/2019 Medical History Medical History Date Comments Hypertension Hyperlipidemia Allergies Colon polyp Parkinson disease (HCC) Sleep apnea Allergic rhinitis Asthma Hypertension Gastric reflux BPH (benign prostatic hyperplasia) Family History Medical History Relation Name Comments TBI Brother Hypertension Father Cancer Mother Hypertension Mother No Known Problems Sister 1 Diabetes Sister 2 Hypertension Sister 2 No Known Problems Son Parkinsonism Neg Hx Tremor Neg Hx Relation Name Status Comments Brother Alive Father Alive Mother Alive Sister 1 Alive Sister 2 Alive Son Alive Social History Tobacco Use Types Packs/Day Years Used Date Smoking Tobacco: Never Smokeless Tobacco: Never Tobacco Cessation:Counseling Given: Not Answered Alcohol Use Standard Drinks/Week Comments Yes 0 (1 standard drink = 0.6 oz pur e alcohol) occasionally AUDIT-C Answer Date Recorded Q1: How often do you have a drink containing alcohol? Never 04/09/2024 Q2: How many drinks containi ng alcohol do you have on a typical day when you are drinking? Patient does not drink Q3: How often do you have si x or more drinks on one occasion? Never 04/09/2024 Personal Safety Answer Date Recorded Have you ever been in or are you currently in a harmful physical or emotional relationship or is someone making you feel afraid or unsafe? 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 Not on file N ot on file Not on file Obstetrics History Last Filed Vital Signs Vital Sign Reading Time Taken Comments Blood Pressure 117/70 12/02/2024 8:56 AM CDT Pulse 62 12/02/2024 8:56 AM CDT Temperature 36.9 C (98.5 F) 04/10/2024 10:22 AM CELL [employer]ER Respiratory Rate 16 04/10/2024 10:2 2 AM CE[employer]ER Oxygen Saturation 97% 12/02/2024 8:56 AM CDT Inhaled Oxygen Concentration - - Weight 85.2 kg (187 lb 12.8 oz) 12/02/2024 8:56 AM CDT Height 170.2 cm (5' 7) 12/02/2024 8:56 AM CDT Body Mass Index 29.41 12/02/2024 8:56 AM CDT Plan of Treatment Health Maintenance Due Date Last Done Comments Hepatitis C Screening 1955 Prostate Cancer Screening-PSA 1955 Hepatitis B Screening 08/23/1975 Pneumococcal vaccine 65+ (1 of 1 - PCV) 08/23/2007 Zoster Vaccine (1 of 2) 08/23/2007 Well Visit 65+ 2022 Influenza Vaccine (#1) 2024 4, 02/01/2021, 02/24/2020, Additional history exists Depression Screening 02/16/2025 02/17/2024 Fall Risk Assessment 04/10/2025 04/10/2024 DTaP/Tdap/Td Vaccine (2 - Td or Tdap) 04/14/2031 04/14/2021 Colon Cancer Screening-Colonoscopy 04/10/2034 04/10/2024, 06/03/2019, 02/09/2014, Additional history exists Colon Cancer Screening-CT Colonography Discontinued 04/10/2024, 06/03/2019, 02/09/2014, Additional history exists Colon Cancer Screening-DNA Stool Discontinued 04/10/2024, 06/03/2019, 02/09/2014, Additional history exists Colon Cancer Screening-FIT Discontinued 04/10, 06/03/2019, 02/09/2014, Additional history exists Colon Cancer Screening-Sigmoidoscopy Discontinued 04/10/2024, 06/03/2019, 02/09/2014, Additional history exists Procedures Procedure Name Priority Date/Time Associated Diagnosis Comments COLONOSCOPY 04/10/2024 7:39 AM CELL LINER from Last 3 Months or Most Recently Relevant to Health Maintenance Results * Colonoscopy (04/10/2024 7:39 AM CELL LINER) Anatomical Region Laterality Modality Other Narrative Procedure Note Vincenzo Sanchez MD - 04/10/2024 7:39 AM CST [facility] Patient Name: Fe Finley Procedure Date: 04/10/2024 7:39 AM Date of : 1955 Admit Type: Outpatient Age: 68 Gender: Male Attending MD: Vincenzo Sanchez M.D. Room: [facility] 1 Note Status: Finalized Patient Profile: This is a 68 year old male. History of polyps. No family history of colon cancer. Procedure: Colonoscopy Indications: High risk colon cancer surveillance: Personalhistory of colonic polyps, Last colonoscopy: May 2019 Referring MD: Dianne Campbell M.D. Providers: Vincenzo Sanchez M.D. Impression: - Overall unremarkable colonoscopy. - One 3 mm polyp in the ascending colon, removedwith a jumbo cold forceps. Resected and retrieved. - Internal hemorrhoids. Recommendation: - Await pathology results. - Repeat colonoscopy in 5 years for surveillance. Medicines: Monitored Anesthesia Care Complications: No immediate complications. Estimated Blood Loss: Estimated blood loss: none. Procedure: Pre-Anesthesia Assessment: - Prior to the procedure, a History and Physicalwas performed, and patient medications and allergieswere reviewed. The patient's tolerance of previous anesthesia was also reviewed. The risks andbenefits of the procedure and the sedation options and risks were discussed with the patient. All questions were answered, and informed consent was obtained. Prior Anticoagulants: The patient has taken noanticoagulant or antiplatelet agents. ASA Grade Assessment: Per anesthesia note and evaluation. After reviewing the risks and benefits, the patient was deemed in satisfactory condition to undergo the procedure. The benefits, risks and alternatives of theprocedure and sedation were discussed and informed consentwas obtained. All questions were answered. Please referto the signed informed consent document in the medical record. The bowel preparation used was Miralax via split dose instruction. The bowel preparation usedwas bisacodyl tablets via split dose instruction. The scope was passed under direct vision. The Pediatric Colonoscope PCF-H190L [id number] was introducedthrough the anus and advanced to the the cecum, identifiedby appendiceal orifice and ileocecal valve. Thequality of the bowel preparation was good. Bowel prep was administered using a split dose. Findings: The perianal and digital rectal examinations were normal. The cecum appeared normal. A small benign 3 mm polyp was found in the ascending colon. The polyp was flat. The polyp was removed with a jumbo cold forceps. Resectionand retrieval were complete. The rectum, sigmoid colon, descending colon and transverse colon appeared normal. Internal hemorrhoids were found during retroflexion. The hemorrhoids were small. Electronically signed by Vincenzo Sanchez M.D. Vincenzo Sanchez M.D. 04/10/2024 9:57:36 AM Number of Addenda: 0 Note Initiated On: 04/10/2024 7:39 AM Procedure Code(s): --- Professional --- 23396, Colonoscopy, flexible; with biopsy, single or multiple Diagnosis Code(s): --- Professional --- Z86.010, Personal history of colonic polyps K64.8, Other hemorrhoids D12.2, Benign neoplasm of ascending colon CPT copyright 2020 [employer]. All rights reserved. The codes documented in this report are preliminary and upon packing shed supervisor reviewmay be revised to meet current compliance requirements. Recognized by the [employer] for promoting quality in endoscopy Vincenzo Sanchez MD ENDOSCOPY PROCEDURES Final Result from Last 3 Months or Most Recently Relevant to Health Maintenance Insurance MEDICARE [place] MEDICARE [facility] Advance Directives For more information, please contact: [phone] * Full Code (Latest Code Status on File) Date Activated Date Inactivated Comments 04/10/2024 7:42 AM 04/10/2024 2:42 PM * Full Code Date Activated Date Inactivated Comments 04/10/2024 7:42 AM 04/10/2024 7:42 AM * Full Code Date Activated Date Inactivated Comments 04/22/2020 11:43 AM 04/22/2020 6:23 PM * Full Code Date Activated Date Inactivated Comments 04/22/2020 11:43 AM 04/22/2020 11:43 AM * Full Code Date Activated Date Inactivated Comments 06/03/2019 8:30 AM 06/03/2019 2:53 PM Care Teams Semiconductor Engineer Relationship Specialty Start Date End Date Lexy Taylor MD [address] [place] [address] PCP - General Internal Medicine 08/18/24
--- OUTSIDE RECORDS SUMMARY | 2024-12-14 14:00 | XMS_ITS | Clinical Summary ---
Author Organization [facility] Address [address] [facility] [address] [place] [address] Phone Care Team Providers Care Clinical Systems Analyst Name Role Phone Dianne Campbell MD Primary Care Provider [phone] Allergies Active Allergy Reactions Criticality Noted Date Comments Molds & Smuts Rash Medium 12/07/2019 Sulfadiazine Anaphylaxis High 02/09/2019 Near experience Sulfamethoxazole-Trimethop rim Rash Medium 12/07/2019 Medications losartan (COZAAR) 50 MG Tablet Take 50 mg by mouth daily. 6 Active simvastatin (ZOCOR) 20 MG Tablet Take 20 mg by mouth daily. 6 Active VITAMIN D PO Take 1,000 mcg by mouth. Active acetaminophen (TYLENOL) 500 MG Tablet Take 1,000 mg by mouth. 0 Active alfuzosin (UROXATRAL) 10 MG TABLET SR 24 HR 0 Active cyanocobalamin (VITAMIN B-12) 1000 MCG/ML Solution 9 Active Fluticasone Furoate 27.5 MCG/SPRAY Suspension 2 Sprays by Nasal route. Active ibuprofen (MOTRIN) 200 MG Tablet Take 200 mg by mouth. Active Levocetirizine Dihydrochloride 2.5 MG/5ML Solution Take 2.5 mg by mouth. Active meloxicam (MOBIC) 7.5 MG Tablet Take 7.5 mg by mouth. 0 Active montelukast (SINGULAIR) 10 MG Tablet Take 10 mg by mouth. Active rOPINIRole (REQUIP) 0.25 MG Tablet 9 Active telmisartan (MICARDIS) 40 MG Tablet 0 Active traMADol (ULTRAM) 50 MG Tablet TAKE 1 TO 2 TABLETS BY MOUTH EVERY 4 HOURS FOR 3 DAYS NEEDED FOR PAIN 0 Active amitriptyline (ELAVIL) 10 MG Tablet 1 Active Gabapentin (GABARONE PO) Take by mouth. 0 Active metoprolol Succinate (TOPROL-XL) 25 MG TABLET SR 24 HR Take 25 mg by mouth. 1 Active Active Problems Problem Noted Date Diagnosed Date Blurry vision 07/19/2015 Social History Tobacco Use Types Packs/Day Years Used Date Smoking Tobacco: Never Smokeless Tobacco: Never Alcohol Use Standard Drinks/Week Comments Yes 0 (1 standard drink = 0.6 oz pur e alcohol) ocassional Sex and Gender Information Value Date Recorded Sex Assigned at Not on file Legal Sex Male 12:12 AM CDT Gender Identity Not on file Sexual Orientation Not on file Last Filed Vital Signs Vital Sign Reading Time Taken Comments Blood Pressure 140/72 06/03/2020 4:56 PM [employer] Pulse 79 06/03/2020 4:56 PM [employer] Temperature 36.9 C (98.4 F) 06/03/2020 4:56 PM [employer] Respiratory Rate 18 06/03/2020 4:56 PM [employer] Oxygen Saturation 98% 06/03/2020 4:56 PM [employer] Inhaled Oxygen Concentration - - Weight 89.8 kg (198 lb) 06/08/2019 9:34 AM CDT Height 172.7 cm (5' 8) 06/08/2019 9:34 AM CDT Body Mass Index 30.11 06/08/2019 9:34 AM CDT Plan of Treatment Health Maintenance Due Date Last Done Comments Hepatitis C Virus (HCV) Screening 1955 TdaP Immunization 1955 Cologuard 2002 Immunochemical Fecal Occult Blood 2002 Pneumococcal Immunization (5 0+ years) (1 of 1 - PCV) 08/23/2007 Zoster Immunization (1 of 2) 08/23/2007 Influenza Immunization (#1) 2024 SARS-COV-2 Immunization ( season) 2024 Colonoscopy 06/02/2029 06/03/2019 Colorectal Cancer Screening 06/02/2029 Respiratory Syncytial Virus (RSV) Immunization (Adult) (1 - 1-dose 75+ series) 2032 Hepatitis B Immunization Aged Out No longer eligible based on patient's age to complete this topic Human Papillomavirus (HPV) Immunization Aged Out No longer eligible b ased on patient's age to complete this topic Meningococcal Immunization (ACWY) Aged Out No longer eligible based on patient's age to complete this topic Rotavirus Immunization Aged Out No lo nger eligible based on patient's age to complete this topic Insurance Care Teams Clinical Systems Analyst Relationship Specialty Start Date End Date Dianne Campbell MD [address] [place] [place] [address] PCP - General Internal Medicine 09/11/15
== END 2024-12-14 13:38 | disposition home or self-care (01) ==
PROVIDERS: Visit Provider Orthopaedic Surgery
DX: M25.511 Pain in right shoulder (principal); Z96.611 Presence of right artificial shoulder joint
CPT/HCPCS: 73030